=== PATIENT | female | born 1965 | race Caucasian/White ===

== ENCOUNTER → 2018-11-06 | Outpatient (CLI) | payer OTHER ==
--- NOTE | 2018-11-06 14:43 | PCVCIMAG ---
APPROVED REPORT Study performed: 11/06/2018 09:55:50 EXAM: Comprehensive 2D, Doppler, and color-flow Echocardiogram Patient Location: Echo lab Status: routine BSA: 2.20 HR: 60 bpmBP: 118/80 mmHg Rhythm: Atrial Fibrillation Other Information Study Quality: Adequate Risk Factors: Cardiac Risk Factors: HTN, Smoking Indications SUSHILA, Asthma 2D Dimensions IVSd: 7.71 (7-11mm)LVOT Diam: 21.55 (18-24mm) LVDd: 54.10 mm PWd: 7.18 (7-11mm)Ascending Ao: 23.92 (22-36mm) LVDs: 29.61 (25-40mm) Left Atrium: 34.27 (27-40mm) Aortic Root: 22.20 mm LV Single Plane 4CH: 58.37 % LV Single Plane 2CH: 45.38 % Volumes Left Atrial Volume (Systole) Single Plane 4CH: 67.10 mLSingle Plane 2CH: 43.55 mL LA ESV Index: 26.00 mL/m2 Aortic Valve AoV Peak Andrew.: 1.67 m/s AO Peak Gr.: 11.21 mmHgLVOT Max P.27 mmHg LVOT Max V: 0.75 m/s GARY Vmax: 1.64 cm2 Mitral Valve E/A Ratio: 1.3 MV Decel. Time: 232.43 ms MV E Max Andrew.: 1.05 m/s MV A Andrew.: 0.83 m/s TDI E/Lateral E': 8.75E/Medial E': 10.50 Medial E' Andrew.: 0.10 m/s Lateral E' Andrew.: 0.12 m/s Pulmonary Valve PV Peak Andrew.: 1.08 m/sPV Peak Gr.: 4.64 mmHg Pulmonary Vein P Vein S: 0.67 m/sP Vein A: 0.27 m/s P Vein D: 0.33 m/sP Vein A Dur.: 121.1 msec P Vein S/D Ratio: 2.03 Tricuspid Valve TR Peak Andrew.: 2.56 m/s TR Peak Gr.: 26.21 mmHg TV Vmax: 0.90 m/s Left Ventricle The left ventricle is normal size. There is normal LV segmental wall motion. There is normal left ventricular wall thickness. Left ventricular systolic function is normal. The left ventricular ejection fraction is within the normal range. LVEF is 55-60%. The left ventricular diastolic function is normal. Right Ventricle The right ventricle is normal size. The right ventricular systolic function is normal. Atria The left atrium size is normal. The right atrium size is normal. Aortic Valve The aortic valve is normal in structure. No aortic regurgitation is present. There is no aortic valvular stenosis. Mitral Valve The mitral valve is normal in structure. There is no mitral valve regurgitation noted. No evidence of mitral valve stenosis. Tricuspid Valve The tricuspid valve is normal in structure. Trace tricuspid regurgitation. Pulmonary artery presssure is 33mmHg. Pulmonic Valve The pulmonary valve is normal in structure. There is no pulmonic valvular regurgitation. Great Vessels The aortic root is normal in size. IVC is normal in size and collapses >50% with inspiration. Pericardium There is no pericardial effusion. <Conclusion> Left ventricular systolic function is normal. There is normal LV segmental wall motion. LVEF is 55-60%. Normal diastolic function The aortic valve is normal in structure. No aortic regurgitation or stenosis The mitral valve is normal in structure. No mitral valve regurgitation Trace tricuspid regurgitation. Pulmonary artery presssure of 33mmHg. There is no pericardial effusion.
== END | disposition home or self-care (01) ==
LOC: PCVCIMAG 09:27
PROVIDERS: ATTEND Internal Medicine
DX: G47.33 Obstructive sleep apnea (adult) (pediatric) (principal); E78.5 Hyperlipidemia, unspecified; I10 Essential (primary) hypertension; J45.909 Unspecified asthma, uncomplicated; Z72.0 Tobacco use
CPT/HCPCS: 93306